=== PATIENT | female | born 2000 | race Caucasian/White ===

== ENCOUNTER 2020-09-17 15:15 | Emergency (ER) | payer OTHER ==
[~2020-09-17] VITALS: Ht 157.5 cm; Wt 54.4 kg
[2020-09-17 15:15] VITALS: BP_SYST 133
[2020-09-17 16:24] VITALS: BP_SYST 133
== END 2020-09-17 16:25 | disposition home or self-care (01) ==
LOC: SED 15:15
DX: S80.02XA Contusion of left knee, initial encounter (principal); V49.9XXA Car occupant (driver) (passenger) injured in unspecified traffic accident, initial encounter; Y93.89 Activity, other specified; Y92.413 State road as the place of occurrence of the external cause; Y99.8 Other external cause status
CPT/HCPCS: 99281